=== PATIENT | female | born 1985 | race Caucasian/White ===

== ENCOUNTER 2017-04-24 00:10 | Emergency (ER) | payer OTHER ==
[~2017-04-24] VITALS: Ht 157.5 cm; Wt 68.0 kg
--- NOTE | 2017-04-24 00:45 | NUR ---
PT A/OX4 BREATHING EFFORTLESSLY ON ROOM AIR, PT STATES SHE FELL DOWN 4 STAIRS 1 HOUR AGO, PT DENEIS LOC, PT C/O RIGHT ELBOW, FOREARM AND HAND PAIN AND MID BACK PAIN ON THE RIGHT SIDE, PT FAMILY AT BEDSIDE, MADE AWARE WILL CONTINUE TO MONITOR.
[2017-04-24 01:47] VITALS: BP 116/70
== END 2017-04-24 01:47 | disposition home or self-care (01) ==
LOC: ER 00:10
DX: S39.012A Strain of muscle, fascia and tendon of lower back, initial encounter (principal); S60.211A Contusion of right wrist, initial encounter; W01.0XXA Fall on same level from slipping, tripping and stumbling without subsequent striking against object, initial encounter; Y93.89 Activity, other specified; Y92.89 Other specified places as the place of occurrence of the external cause; Y99.9 Unspecified external cause status
CPT/HCPCS: 72100; 73090; 73130; 99284; A4606; Z7610

== ENCOUNTER 2017-12-26 21:58 | Emergency (ER) | payer OTHER ==
[~2017-12-26] VITALS: Ht 160 cm; Wt 53.5 kg
--- NOTE | 2017-12-26 22:40 | NUR ---
PT BIB BF FROM [facility], PT C/O RIGHT BREAST PAIN X 2 MONTHS RADIATING TO THE R ARM CAUSING NUMBNESS. PT AAOX4. RESP EVEN AND NONE LABORED. SKIN PINK AND WARM. NO S/S OF ACUTE DISTRESS NOTED. PT GOWNED AND PLACED ON MONITOR AND POX. AWAITNG MD FOR EVAL.
--- NOTE | 2017-12-26 23:04 | NUR ---
BEDSIDE FOR EVAL.
[2017-12-26] MEDS ORDERED: IBUPROFEN 600 MG TABLET PO ONE ×2 (23:15→23:30)
--- NOTE | 2017-12-26 23:28 | NUR ---
PT TO CT.
--- NOTE | 2017-12-26 23:44 | NUR ---
PT BACK FROM XRAY
[2017-12-27 00:59] VITALS: BP 121/67
--- NOTE | 2017-12-27 00:59 | NUR ---
Patient discharged to home in stable condition. Written and verbal after care instructions given. Patient verbalizes understanding of instruction.
== END 2017-12-27 01:00 | disposition home or self-care (01) ==
LOC: ER 22:01
DX: R07.89 Other chest pain (principal); Z98.82 Breast implant status
CPT/HCPCS: 71100-TC; A4606; Z7610